=== PATIENT | male | born 1960 | race Caucasian/White ===

== ENCOUNTER 2019-01-21 20:04 | Observation (INO) | payer OTHER, SELFPAY ==
--- NOTE | 2019-01-21 | PATH_ITS ---
[facility] Accession Number: [id number] . 01 Material submitted: . gallbladder - GALLBLADDER AND CONTENTS . 02 Diagnosis: Gallbladder and Contents, Cholecystectomy: Cholelithiasis with chronic active cholecystitis. No evidence of neoplasm. MRV/01/25/2019 . 02 Electronically signed: . Bob Cevallos MD, PhD, Pathologist NPI- [id number] . 01 Gross description: . Received in formalin, labeled gallbladder and contents, is an intact gallbladder (length-9.8 cm, diameter-3.3 cm) with carrera-garduno, smooth, shiny, focally eroded serosa and a patent cystic duct. No lymph nodes are identified. The lumen contains brown, viscous bile and multiple solid, hard, smooth, pale garduno calculi (5.4 x 2.3 x 1.3 cm in aggregate) with dewayne cut surfaces. The mucosa is carrera-garduno, smooth and flat. The wall is up to 0.2 cm thick. No nodules, masses or lesions are identified. Section code: (A1) cystic duct resection margin and two serial sections from the body; (A2, A3) retail field representative longitudinal sections from the fundus. ([id number]) /MRV . 02 Pathologist provided ICD-10: K80.60 . 02 CPT . 155531 Performed at: 01 [facility] [address] [facility], [place], [place] [id number] MD Luis M Patton MD Phone: [phone] Performed at: 02 [facility] [id number] [place], [place] [id number] MD Tawny Monaco MD Phone: [phone]
[2019-01-21 20:05] VITALS: BP 117/73; PULSE 90; RESP 19; TEMP 36.6; O2SAT 97; BMI 30.4
--- NOTE | 2019-01-21 20:36 | ED.ABDPAIN ---
HPI - Abdominal Pain General Chief Complaint: Abdominal Pain Stated Complaint: SENT FROM [facility] Time Seen by Provider: 01/21/19 20:08 Source: patient Mode of arrival: ambulatory Limitations: no limitations History of Present Illness HPI narrative: Patient comes emergency department complaining of right-sided flank and abdominal pain and gallstones. Patient had a diagnosis of gallstones some months ago and decided to forego surgery for the time being and seeing how he did symptomatically. However, the patient began to have severe pain around 1:00 a.m. this morning, and ultrasound showed edematous gallbladder with a stone her neck. The patient's daughter was getting today, so the patient opted to use a fentanyl patch, go to the wedding on [facility], and then come over here. The case was discussed with Dr. Jerome by the evaluating physician on [place], and arrangements were made for the patient come here. Patient states that he has not had any nausea or vomiting throughout the course of this episode. He states that currently, with his fentanyl patch, he is pain-free. Patient states that he had a sip of water at 1:00 p.m. today, but otherwise, his last p.o. intake was 2130 last night. He is not on any anticoagulants. Patient states he takes singular for allergies, and occasional albuterol for the same, but is otherwise healthy. No other complaints at this time. No fevers or jaundice. Related Data Previous Rx's Medication Instructions Recorded acetaminophen 1,000 mg PO QID #30 cap 01/22/19 oxycodone See Rx Instructions .ROUTE 01/22/19 .COMPLEX PRN #14 cap Allergies Allergy/AdvReac Type Severity Reaction Status Date / Time No Known Drug Allergies Allergy Verified 01/21/19 22:37 Review of Systems Constitutional Denies chills, Denies fever(s), Denies lethargy and Denies weakness Eyes Denies change in vision, Denies eye discharge, Denies irritation and Denies loss of vision ENT Ears, Nose, Mouth, and Throat: Denies change in voice, Denies neck pain and Denies sore throat Cardiovascular Denies chest pain, Denies irregular heart rhythm, Denies lightheadedness, Denies palpitations, Denies dyspnea, Denies dyspnea on exertion and Denies orthopnea Respiratory Denies cough, Denies dyspnea, Denies dyspnea on exertion and Denies wheezing Gastrointestinal Gastrointestinal: Reports abdominal pain, Denies change in bowel habits, Denies diarrhea, Denies nausea and Denies vomiting Genitourinary Denies hematuria, Denies flank pain, Denies urinary incontinence and Denies urinary urgency Musculoskeletal Denies neck pain Integumentary/Breasts Denies pruritus, Denies erythema, Denies rash and Denies wounds Neurologic Denies confusion, Denies loss of vision and Denies weakness Psychiatric Denies anxiety, Denies confusion, Denies depression, Denies homicidal ideation and Denies suicidal ideation Endocrine Denies palpitations Hematologic/Lymphatic Denies easy bruising Allergic/Immunologic Denies wheezing [facility] Medical History Seasonal allergies (Acute) Cholelithiasis (Acute) Surgical History No pertinent past surgical history (Acute) Social History Smoking Status: Never smoker Social History household members: spouse Smoking Status: Never smoker Exam Initial Vital Signs Initial Vital Signs: Vital Signs Temperature 97.9 F 01/21/19 20:05 Pulse Rate 90 01/21/19 20:05 Respiratory Rate 19 01/21/19 20:05 Blood Pressure 117/73 01/21/19 20:05 Pulse Oximetry 97 01/21/19 20:05 Const General: cooperative and well developed Nutritional Appearance: well nourished Orientation: alert, awake, oriented x3 and not confused [facility] Head: normocephalic and atraumatic Ears: external ears normal Nose: external nose normal and No nasal discharge Face and sinus: face symmetric and No dry mucous membranes Mouth: oral mucosae normal and moist mucous membranes Teeth and gingiva: dentition normal Eyes General: appearance normal, both eyes and all related structures Eyelids: eyelids normal Conjunctivae: conjunctivae normal Sclera: sclerae normal Pupils: PERRL EOM: EOM intact bilaterally Neck Neck: normal visual inspection, trachea midline, No lymphadenopathy, No midline deformity and No JVD Lymphatic: No lymphedema Chest Chest: normal inspection of the chest Resp Effort & Inspection: normal respiratory effort, able to speak in complete sentences, no respiratory distress and no use of accessory muscles Auscultation: clear to auscultation bilaterally, no rales, no rhonchi and no wheezes Cardio Rate: regular rate Rhythm: regular rhythm Heart Sounds: no click, no gallops, no murmurs and no rubs Pulses: normal peripheral pulses GI Inspection: non-distended Palpation: soft, no hepatosplenomegaly, No guarding, No pulsatile mass and No tender Auscultation: normal bowel sounds Back/Spine/Pelvis Back: No CVA tenderness Cervical Spine: cervical ROM normal and No pain with cervical ROM Thoracic/Lumbar Spine: thoracic and lumbar spine normal to inspection Skin General: no rashes or lesions noted, No jaundice and No petechiae Neuro General: alert, oriented x3, gait normal and no focal motor deficits Speech: speech normal Extrem General: full ROM, no clubbing, cyanosis or edema, no pedal edema and no calf tenderness Psych Appearance: well kempt Mental Status: mental status grossly normal Attitude: cooperative Thought Content: normal and suicidality Judgment: judgment good Course Course Narrative: Laboratory studies were obtained, and the case was discussed with Dr. Jerome, who is expecting the patient. Plan was made to take the patient to operating room from the emergency department. Patient is agreeable to this plan. Orders Ordered: Discontinued Medications Acetaminophen (Tylenol) 975 mg PO Q8H [facility] Last Admin: 01/22/19 08:42 Dose: 975 mg Admin: 01/22/19 01:37 Dose: Not Given Bupivacaine HCl/Epinephrine Bitart (Sensorcaine 0.25% W/ Epi (Pf)) 30 ml INJ NOW ONE Stop: 01/21/19 22:36 Last Admin: 01/21/19 22:36 Dose: 30 ml Fentanyl (Sublimaze) 50 mcg IV Q5MIN PRN PRN Reason: Pain, Moderate (4-6) Heparin Sodium (Porcine) (Heparin) 5,000 unit SUBCUT Q8HR [facility] Last Admin: 01/22/19 06:46 Dose: 5,000 unit Hydromorphone HCl (Dilaudid) 0.5 mg IV Q5MIN PRN PRN Reason: Pain, Moderate (4-6) Hydromorphone HCl (Dilaudid) 0.5 mg IV Q4H PRN PRN Reason: Pain, Severe (7-10) Metronidazole (Flagyl) 500 mg in 100 mls @ 100 mls/hr IV NOW ONE Stop: 01/21/19 22:27 Last Infusion: 01/21/19 22:20 Dose: 0 mls/hr Admin: 01/21/19 22:00 Dose: 100 mls/hr Sodium Chloride (Normal Saline 0.9%) 1,000 mls @ 84 mls/hr IV NOW ONE Stop: 01/22/19 10:32 Last Infusion: 01/21/19 23:20 Dose: 0 mls/hr Admin: 01/21/19 21:50 Dose: 84 mls/hr Lactated Ringer's (Lactated Ringers) 1,000 mls @ 42 mls/hr IV NOW ONE Stop: 01/22/19 23:07 Last Infusion: 01/22/19 00:48 Dose: 42 mls/hr Admin: 01/21/19 23:21 Dose: 42 mls/hr Lactated Ringer's (Lactated Ringers) 1,000 mls @ 84 mls/hr IV CONT [facility] Last Admin: 01/22/19 01:37 Dose: 84 mls/hr Lorazepam (Ativan) 0.25 mg IV NOW PRN PRN Reason: Anxiety Metoclopramide HCl (Reglan) 10 mg IV NOW PRN PRN Reason: Nausea And Vomiting Ondansetron HCl (Zofran) 4 mg IV NOW PRN PRN Reason: Nausea And Vomiting Ondansetron HCl (Zofran) 4 mg IV Q4HR PRN PRN Reason: Nausea And Vomiting Oxycodone HCl (Percolone) 5 mg PO Q4HR PRN PRN Reason: Pain, Moderate (4-6) Last Admin: 01/22/19 11:50 Dose: 5 mg Oxycodone HCl (Percolone) 10 mg PO Q4HR PRN PRN Reason: Pain, Severe (7-10) Oxycodone/Acetaminophen (Percocet 5/325) 1 tab PO Q30MIN PRN PRN Reason: Mild or moderate pain Polyethylene Glycol (Miralax) 17 gm PO BID [facility] Last Admin: 01/22/19 08:43 Dose: 17 gm Vital Signs - 8 hr 01/21/19 20:05 Temperature 97.9 F Pulse Rate 90 Respiratory Rate 19 Blood Pressure 117/73 Pulse Oximetry 97 MDM - Abdominal Pain Medical Records Attestation: I reviewed the patient's medical records. Discharge Plan Departure Patient Disposition: Admitted as Observation Clinical Impression: Acute cholecystitis Discharge Date/Time: 01/21/19 21:45 Interventions: ED Discharge Assessment Last Done: 01/21/19 21:44 Admit Date/Time: 01/21/19 21:23 Admit Provider: Tom Gaines
--- NOTE | 2019-01-21 21:30 | PM.HP.1 ---
History of Present Illness Date Patient Seen: 01/21/19 Time Patient Seen: 21:31 Chief complaint: GALLBLADDER Narrative: 58-year-old man presents with 20 hours of right upper quadrant pain. Diagnosed with acute cholecystitis at hospital in [place]. Patient has had multiple postprandial right upper quadrant episodes of pain starting in August of this year. Previous workup has noted 3 large stones within the gallbladder. Very early this morning approximately 1:00 a.m. patient awoke with market right upper quadrant pain following a rich meal the night before at [employer] dinner for his daughter's wedding. In the emergency department this morning at [place] he was noted to have a thickened gallbladder with pericholecystic fluid adjacent to and is a large stone lodged in the neck. Despite his pain he insisted on attending his daughter's wedding today. He was given 2 g of ceftriaxone as well as 500 mg of metronidazole and a fentanyl patch to allow him to make it through the day. He now presents for definitive care. Of note white blood cell count at the time was 10.4, hematocrit 42, platelets 244. Creatinine 0.9. Total bilirubin 0.7 By ultrasound CBD 4 mm Currently he is having minimal pain but again wearing a fentanyl patch Patient History Medical History Seasonal allergies (Acute) Cholelithiasis (Acute) Surgical History No pertinent past surgical history (Acute) Social History Smoking Status: Never smoker Family & Social History Safety & Behavioral: Feels Safe in Current Yes Environment Been Physically Hurt or No Threatened By a Person Tobacco & Substance use: Smoking Status Never smoker alcohol intake frequency holiday/special occasion Substance Use Type does not use Review of Systems Constitutional Constitutional: Denies fever(s) Eyes Eyes: Denies bulging eyes ENT Ears, Nose, Mouth, and Throat: No lip swelling Cardiovascular Cardiovascular: Denies generalize swelling Respiratory Respiratory: Denies stridor Gastrointestinal Gastrointestinal: Denies coffee ground emesis Musculoskeletal Musculoskeletal: Denies loss of height Integumentary/Breasts Skin/Breast: Denies wounds Neurologic Neurologic: Denies abnormal speech and Denies confusion Psychiatric Psychiatric: Denies confusion Endocrine Endocrine: Denies deepening of the voice Hematologic/Lymphatic Hematologic/Lymphatic: Denies lymphadenopathy Allergic/Immunologic Allergic/Immunologic: Denies lip swelling Exam Vital Signs (past 8 hours): - 01/21/19 20:05 Temperature 97.9 F Pulse Rate 90 Respiratory Rate 19 Blood Pressure 117/73 Pulse Oximetry 97 Oxygen Delivery Method Room Air Const General: cooperative and healthy appearing Orientation: alert [facility] Head: normal to inspection Nose: nares normal Mouth: oral mucosae normal and lip normal Eyes Eyelids: eyelids normal Conjunctivae: conjunctivae normal Sclera: sclerae normal Neck Neck: supple and other (No thyromegally) Chest Chest: other (LCTAB , regular respiratory effort) Cardio Rhythm: regular rhythm Heart Sounds: S1 normal, S2 normal, no gallops, no murmurs and no rubs GI Other: Abdomen is without surgical incision. He it is nondistended, dull to percussion, no tenderness to percussion, no hepatosplenomegaly, there is mild tenderness to palpation the right upper quadrant. No masses No rebound or guarding Skin General: no rashes or lesions noted Neuro General: alert and awake Psych Appearance: grossly normal Affect: normal affect Assessment & Plan Assessment & Plan narrative: 58-year-old man presents with nearly 24 hours of pain in the setting of acute cholecystitis was large stone obstructing the gallbladder neck. He has delayed presentation for care due to his daughter's wedding today. In the setting of antibiotic treatment earlier today and a fentanyl patch as pain has improved substantially however radiographically with free fluid, large stone, and significant thickening I think it is prudent to operate this evening. Risks of surgery including bleeding, infection, injury to adjacent structures including the common bile duct and need for reconstructive surgery, bile leak, need to convert to open all discussed Plan: Laparoscopic cholecystectomy Will need re-dose of metronidazole Likely will stay overnight and discharged tomorrow morning if things go well operatively
[2019-01-21] MEDS: SODIUM CHLORIDE 0.9% 1,000 ML 84 ML IV (21:50)
[2019-01-21 21:59] VITALS: BMI 30.4
[2019-01-21] MEDS: metroNIDAZOLE 500 MG/100 ML PIGGYBACK 100 MG IV (22:00)
[2019-01-21] MEDS: BUPIVACAINE 0.25% W/ EPI 30 ML VIAL INJ (22:36)
--- NOTE | 2019-01-21 22:40 | SUR.OPER ---
Patient had a fentanyl patch that was placed, per the patient, when he was at the [facility]. Dr. Mattson had the patient remove and the patch was disposed of into the disposal unit [place]. Observed by Dr. Mattson and myself.
[2019-01-21] MEDS: LACTATED RINGERS 1,000 ML 42 ML IV (23:21)
[2019-01-22] VITALS (12 sets, daily range): BP systolic 104–131; BP diastolic 68–84; PULSE 77–98; RESP 9–16; TEMP 36.2–36.7; O2SAT 96–99
--- NOTE | 2019-01-22 00:11 | PM.OP.1 ---
Operative Date/Time/Diagnoses Date of procedure: 01/22/19 Time of procedure: 00:11 Pre-op diagnosis: Acute cholecystitis Post-op diagnosis: same Procedure & Clinicians Procedure: Laparoscopic cholecystectomy Same procedure as scheduled: Yes Indications: 58-year-old man who presents to the emergency department with approximately 20 hours right upper quadrant pain. He had an ultrasound demonstrating a large gallstone lodged in the neck of the gallbladder with gallbladder wall thickening. There is also significant pericholecystic fluid. At outside emergency department he had previously be given 2 g ceftriaxone and 500 metronidazole. His metronidazole was re-dosed and he was taken to the operating room for definitive operative care. Surgeon: Tom Gaines Click Yes if Unassisted: Yes Anesthesia Type: General Operative Notes Findings: 1) markedly an acutely inflamed gallbladder 2) large stone within dilated neck of gallbladder 3) anatomy clear with critical view of safety obtained Closure Type: primary Specimen(s): other (Gallbladder and contents) Estimated Blood Loss (mL): 100 Blood products transfused: none Procedure in detail: Patient was brought to the operating room he was intubated without incident he was prepped and draped in usual sterile fashion and time-out was completed. Entry to the abdomen was performed using Veress needle technique at nick's point a wheal of local anesthetic was raise. A small stab incision was made and a Veress needle was advanced with a distinct click upon entering into the abdomen. The needle was suction there was no blood or succus. And there was a confirmatory saline drop test. Initial insufflation pressures were low. Abdomen was insufflated to 15 mm of mercury small vertically oriented incision was placed just inside the superior umbilical crown. Using Visiport technique a 5 mm trocar was advanced visualizing the layers of the abdominal wall until the dark space of the insufflated abdomen was entered.. The Veress needle entry site was identified there was no bleeding or injury in the needle was removed without incident. Two 5 mm ports were then placed in the right upper quadrant and an additional 11 mm port placed in the epigastrium. The patient was placed in reverse Trendelenburg position with his right side up. The fundus of the gallbladder was grasped and elevated cephalad this revealed numerous omental adhesions to the gallbladder and the medial left lobe of the liver. With careful dissection the greater omentum was detached from both of these structures. Using primarily blunt dissection and a some judicious hook cautery. The gallbladder was then more closely inspected the infundibulum and neck of the gallbladder were markedly dilated with a large impacted stone within. The visceral peritoneum on the medial lateral aspects of the gallbladder was then incised using hook cautery the infundibulum was grasped and retracted laterally. Then began to strip the inflamed adventitial tissue off the infundibulum of the gallbladder and develop the plane between the gallbladder wall and the tissue. I followed this down the infundibulum and below this site of the obstructing stone and eventually identified a normal caliber cystic duct. This duct entered directly into the gallbladder itself it was skeletonized and clipped and divided without incident. Then proceeded to lift the infundibulum out of the cystic plate following the same dissection plane along the gallbladder wall a prominent cystic artery was then identified this was windowed behind before before clipping and then dividing. Gallbladder was then reflected all the gallbladder fossa along the edema plane. A side branch of a prominent vessel -perhaps the right hepatic artery came quite close to the gallbladder -this blood briskly. I was able to quickly dissect out the side branch with a Lina grasper and then apply 2 clips directly to the side branch vessel. Major vessel was not stenosed. The rest of the gallbladder was reflected out of the gallbladder fossa without incident placed in Endo-Catch bag and later removed from the abdomen via the epigastric port. the gallbladder fossa was fulgurated. Clips were recheck the entire dissection plane was noted to be hemostatic. The air was then irrigated and suctioned dry removing blood from Morison's pouch. At this point the gallbladder was brought out through the epigastric port site which need to be significantly widened to accommodate the very edematous gallbladder with very large stones. The fascial defect was then closed using 2 layers. The posterior sheath was reapproximated using a suture Passer device with interrupted 0 Vicryl sutures. The anterior sheath was then closed using a simple continuous running number 0 PDS. Ports were then withdrawn under direct visualization. Local anesthetic was infiltrated into the wounds wounds themselves were copiously irrigated. Skin was closed using monofilament absorbable suture in a subcuticular fashion at all ports. In addition the epigastric port site a deep dermal 2 0 Vicryl layer was used. Skin glue was applied Patient was extubated brought to PACU without incident Complications: none Condition: stable Disposition: PACU Plan for aftercare: To floor overnight and then discharged home Okay for diet
--- NOTE | 2019-01-22 00:35 | SUR.PHASEI ---
Post op PACU note: Patient arrived to PACU sedated, oral airway in place. VSS on arrival O2 sat WNL on RA. Abdominal incision sites x 4 CDI and open to air. IV site patent. SCD's on. Verbal report received from Nicole Whaley and Dr. Mattson. Continue with post-op plan of care.
--- NOTE | 2019-01-22 00:37 | SUR.PHASEI ---
@0031 Patient easily arousable by soft voice but drowsy. Oral airway discontinued. Respirations regular and unlabored. VSS. Continue with post of plan of care.
--- NOTE | 2019-01-22 01:06 | SUR.PHASEI ---
Post op transfer note: VSS, O2 sat on RA WNL, incisions CDI, no complaints of pain, IV site patent. Stable for transfer to IP room 205. Verbal report given to Angela Noel RN.
[2019-01-22] MEDS: LACTATED RINGERS 1,000 ML 84 ML IV (01:37)
[2019-01-22] MEDS: HEPARIN 5,000 UNIT/ML VIAL 5000 UNIT SUBCUT (06:46)
[2019-01-22] MEDS: ACETAMINOPHEN 325 MG TABLET 975 MG PO (08:42)
[2019-01-22] MEDS: POLYETHYLENE GLYCOL 3350 17 GM POWD.PACK PO (08:43)
--- NOTE | 2019-01-22 09:47 | PC.NURSE ---
Addendum entered by Jesica Coley R.N. 01/22/19 13:14: DC - SL dc'd, [employer] accompanied ambulatory pt to friends car. Addendum entered by Jesica Coley R.N. 01/22/19 12:11: PAIN/DC - Dr. Gupta in and pt will dc, given priority pass for christiano, discussed pain mgt as pt having referred shoulder discomfort and agreed to 5mg po oxycodone w/pudding and juice, ice pack provided, hep lock dc'd and dc instructions reviewed with pt and scripts provided. Original Note: AM NOTE - pt is alert, minimal discomfort, states abd pain 1-2 on scale 0/10, prefers to continue with tylenol and declines oxycodone, abd soft, bt are present, hypo, no flatus yet that pt can remember, ra 96%, hr 98, some shoulder discomfort, pt would like to ambul and w/standby assist, ambul [place] hallway x2, gait steady and ret to chair for breakfast, isis gen diet.
--- NOTE | 2019-01-22 11:09 | P.DS_ITS ---
History of Present Illness Chief complaint: GALLBLADDER Discharge Providers Date of admission: 01/21/19 21:23 Discharge Date: 01/22/19 Discharge provider: Paulie Gupta MD Summary Discharge Diagnosis: Acute suppurative cholecystitis cholelithiasis Hospital Course: 58-year-old white male came to the emergency room last evening with acute abdominal pain nausea some vomiting spine have acute cholecystitis cholelithiasis with an impacted stone in the neck of the gallbladder. He was taken to the operating room and had a laparoscopic cholecystectomy and this morning he is happy tolerating diet with no nausea vomiting and has minimal discomfort. This pain is well-controlled with simply Tylenol orally. He is di scharged to be followed by his primary care physician in a week or 2 instructions have been given he understands his diet will gradually increase over the next 3 days or so. He has been told to avoid fatty foods for a few weeks. Other restrictions have been enumerated. Status at Discharge Cognitive/behavioral status at discharge: oriented Functional status at discharge: independent ambulation Overall status at discharge: patient is back to baseline Time Spent with Patient Less than 30 minutes Exam Vital Signs (past 8 hours): - 01/22/19 04:00 01/22/19 08:00 Temperature 97.6 F 98.1 F Pulse Rate 97 H 98 H Respiratory Rate 16 16 Blood Pressure 129/84 131/79 Pulse Oximetry 98 97 Oxygen Delivery Method Room Air Oxygen Flow Rate 0 Discharge Plan Discharge Plan Patient Disposition: Home Discharge Med Rec/Prescriptions Prescriptions: New acetaminophen 500 mg capsule 1,000 mg PO QID Qty: 30 RF: 0 oxycodone 5 mg capsule See Rx Instructions .ROUTE .COMPLEX PRN (Reason: pain) Qty: 14 RF: 0 Follow up/Referrals: Tom Gaines MD [Physician] - (call to check on pathology results in about 1 week ) Provider Discharge Instructions Diet: Diet as Tolerated Activity: Normal activities OK. You can shower 48hrs after surgery. OK to bathe 2 weeks after surgery. No lifting over 15lbs for 4 weeks, then no lifting over 30lbs for additional 2 weeks. Visit Report/Discharge Packet Instructions: DI for Cholecystectomy Stand Alone Forms: Surgery Discharge Discharge Data Attending Provider: Tom Gaines Admit Date/Time: 01/21/19 21:23
[2019-01-22] MEDS: OXYCODONE IR 5 MG TABLET PO (11:50)
--- NOTE | 2019-01-22 14:01 | CM.DANOTE ---
DCP Brief Assessment Patient is a 58 year old male who was admitted on 01/21/19 for GallBladder. Pt has [employer] INSURANCE and his PCP is not local. EMR was reviewed. Per Surgeon, pt tolerated Lap Imelda well and is tolerating diet and ambulation today and is stable for d/c home with no identified barriers to discharge. Per RN, pt agreeable with d/c today and has friend available for transport back out to the [facility] for the remainder of his Dtr's wedding as they are here from [place] for her wedding. Pt is independent with ADL's at baseline and has supportive family present. Plan: Patient to d/c today via friend POV and supportive family available for assist if needed. No SW needs at this time. JEVON Ahn
== END 2019-01-22 12:30 | disposition home or self-care (01) ==
LOC: ED 21:00 → AC 21:45
PROVIDERS: Admitting Provider Surgery; Emergency Provider Emergency Medicine; Visit Provider Surgery
PROC: 0FT44ZZ Resection of Gallbladder, Percutaneous Endoscopic Approach (ICD-10-PCS; CPT 47562; principal; 2019-01-21 21:30)
DX: R10.9 Unspecified abdominal pain (principal); K80.00 Calculus of gallbladder with acute cholecystitis without obstruction
CPT/HCPCS: 47562; 96365; 96372; 99220; 99282; 99284; G0378; J1100; J1644; J2250; J2405; J2704; J3010